=== PATIENT | female | born 1980 | race Caucasian/White ===

== ENCOUNTER 2018-01-09 12:06 | Emergency (ER) | payer MEDICAID ==
--- NOTE | 2018-01-09 14:10 | EDM.PDOC ---
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 Was unsure of her blood type, but by calling her hospital we found she is A+. There has not been a fever. She does not want pain meds. Is here vacationing. Onset: Today Onset Date: 01/09/18 Duration: Hour(s):, Waxing/Waning Location: Reports: Abdomen (low) Quality: Reports: Other (cramping) Severity: Mild Improves with: Reports: None Worsens with: Reports: None Context: Reports: Other (7 weeks ) Associated Symptoms: Reports: No Other Symptoms Treatments DAIRY HAND: Reports: Other (see below) (none) Lower Abdominal Pain Score (Numeric/FACES): 5 - Related Data Allergies Allergy/AdvReac Type Severity Reaction Status Date / Time No Known Allergies Allergy Verified 01/09/18 12:36 Home Meds: Home Meds NK [No Known Home Meds] 01/09/18 [History] Past Medical History HEENT History: Reports: None Cardiovascular History: Reports: Hypertension, Other (See Below) Other Cardiovascular History: SINUS NODE TACHYCARDIA Respiratory History: Reports: None Gastrointestinal History: Reports: None Genitourinary History: Reports: Other (See Below) Other Genitourinary History: 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 History: Reports: Other GRINDER DRESSER History: POST PRE ECLAMPSIA AND TACHYCARDIA WITH PREGNACY Musculoskeletal History: Reports: None Neurological History: Reports: None Psychiatric History: Reports: Depression Endocrine/Metabolic History: Reports: None Hematologic History: Reports: None Immunologic History: Reports: None Oncologic (Cancer) History: Reports: None Dermatologic History: Reports: None - Infectious Disease History Infectious Disease History: Reports: Chicken Pox - Past Surgical History Head Surgeries/Procedures: Reports: None HEENT Surgical History: Reports: Other (See Below) Other HEENT Surgeries/Procedures: PARATHYROID SURGERY Cardiovascular Surgical History: Reports: None Respiratory Surgical History: Reports: None GI Surgical History: Reports: None Female Surgical History: Reports: None Endocrine Surgical History: Reports: Other (See Below) Other Endocrine Surgeries/Procedures: PARTIAL PARATHYROID SURGERY Musculoskeletal Surgical History: Reports: None Dermatological Surgical History: Reports: None Social & Family History - Tobacco Use Smoking Status *Q: Never Smoker Second Hand Smoke Exposure: No - Caffeine Use Caffeine Use: Reports: None - Recreational Drug Use Recreational Drug Use: No ED ROS GENERAL - Review of Systems Review Of Systems: See Below Constitutional: Reports: No Symptoms HEENT: Reports: No Symptoms Respiratory: Reports: No Symptoms GI/Abdominal: Reports: No Symptoms : Reports: Other (uterine cramping with vaginal bleeding(not heavy, some clots ).) Musculoskeletal: Reports: No Symptoms Skin: Reports: No Symptoms ED EXAM - Physical Exam Exam: See Below Exam Limited By: No Limitations General Appearance: Alert, WD/WN, No Apparent Distress Eye Exam: Bilateral Eye: Normal Inspection Ears: Normal External Exam, Normal Canal, Hearing Grossly Normal Nose: Normal Inspection, Normal Mucosa, No Blood Throat/Mouth: Normal Inspection, Normal Lips, Normal Oropharynx, Normal Voice, No Airway Compromise Head: Atraumatic, Normocephalic Neck: Normal Inspection Respiratory/Chest: No Respiratory Distress, Lungs Clear, Normal Breath Sounds, No Accessory Muscle Use Cardiovascular: Regular Rate, Rhythm, No Edema GI/Abdominal Exam: Normal Bowel Sounds, Soft, Non-Tender Extremities: Normal Inspection Neurological: Alert, Oriented, CN II-XII Intact, Normal Cognition Psychiatric: Normal Affect, Normal Mood Skin Exam: Warm, Dry, Intact, Normal Color, No Rash Lymphatic: No Adenopathy Course - Vital Signs Last Recorded V/S: Last Vital Signs Temp 36.9 C 01/09/18 12:33 Pulse 79 01/09/18 12:59 Resp 16 01/09/18 12:59 BP 108/63 01/09/18 12:59 Pulse Ox 97 01/09/18 12:59 - Orders/Labs/Meds Labs: Laboratory Tests 01/09/18 Range/Units 13:15 HCG, Quant 4056 H (0-6) mIU/mL Departure - Departure Time of Disposition: 14:09 Disposition: Home, Self-Care 01 Condition: Fair Clinical Impression: Threatened - Discharge Information Referrals: PCP,None [Primary Care Provider] -
== END 2018-01-09 14:26 | disposition home or self-care (01) ==
LOC: JP.ED 12:06
DX: O09.91 Supervision of high risk pregnancy, unspecified, first trimester (principal); O20.0 Threatened abortion; Z3A.01 Less than 8 weeks gestation of pregnancy
CPT/HCPCS: 36415; 84702; 99284